=== PATIENT | female | born 1960 | race Two or more races ===

== ENCOUNTER 2023-04-06 09:00 | Day surgery (SDC) | payer MEDICAID ==
[2023-04-03 10:08] LABS: BASOPHILS % (AUTO) 0.4 % (0-1); EOSINOPHILS # (AUTO) 0.1 X10'3 (0-0.9); EOSINOPHILS % (AUTO) 1.7 % (0-6); LYMPHOCYTES # (AUTO) 2.4 X10'3 (1.1-4.8); LYMPHOCYTES % (AUTO) 44.9 % (21-51); MEAN CORPUSCULAR HEMOGLOBIN 27.2 PG (27.0-31.0); MEAN CORPUSCULAR HGB CONC 33.7 g/dL (33.0-36.5); MEAN CORPUSCULAR VOLUME 80.7 FL (78-98); MONOCYTES # (AUTO) 0.3 X10'3 (0-0.9); NEUTROPHILS # (AUTO) 2.5 X10'3 (1.8-7.7); PRE OP HEMOGLOBIN 12.5 g/dL (12.0-16.0); PRE OP PLATELET COUNT 196 X10'3 (140-440); PRE OP WHITE BLOOD COUNT 5.3 10'3 (4.8-10.8); RED BLOOD COUNT 4.59 X10'6 (4.20-5.60); RED CELL DISTRIBUTION WIDTH 14.6 % (11.5-14.5)
[2023-04-03 12:07] LABS: ALBUMIN 3.7 G/DL (3.4-5.0); ALBUMIN/GLOBULIN RATIO 0.9 (1.1-1.5); ALKALINE PHOSPHATASE 92 IU/L (46-116); BLOOD UREA NITROGEN 19 MG/DL (7-18); BUN/CREATININE RATIO 21.1 (10.0-20.0); CHLORIDE 106 MMOL/L (99-107); PRE OP ALT 32 U/L (30-65); PRE OP ANION GAP 10 (8-16); PRE OP AST 17 U/L (10-37); PRE OP BILIRUB, TOTAL 0.4 MG/DL (0.0-1.0); PRE OP GLUCOSE 93 MG/DL (70-104); PRE OP POTASSIUM 4.5 MMOL/L (3.4-5.1); PRE OP SODIUM 142 MMOL/L (135-145); TOTAL CARBON DIOXIDE 25.9 MMOL/L (24-32); eGFR 63 ML/MIN
[~2023-04-06] VITALS: Ht 167.6 cm; Wt 79.0 kg
[2023-04-06] VITALS (9 sets, daily range): BP systolic 96–122; BP diastolic 54–70; PULSE 59–67; RESP 10–16; TEMP 98.3; O2SAT 95–98
[~2023-04-06 09:00] MED LIST: ALLO100T PO; GABA-530 PO; MELO-102 PO; PANT40TA54 PO; PARO10TA4 PO; clindamycin-Cleocin 900mg/D5W 50 ML IV ONE
[2023-04-06] MEDS: famotidine 20mg tablet PO ONE (10:33)
[2023-04-06] MEDS: ringers solution, lacted 1,000 ML IV SCH (10:33)
[2023-04-06] MEDS ORDERED: labetalol 20mg/4ml (5mg/ml) syringe IV PRN (10:45)
[2023-04-06] MEDS ORDERED: ondansetron/PF 4mg/2ml inj IV PRN (10:45)
[2023-04-06] MEDS ORDERED: morphine 2 MG/ML inj. syringe IV PRN (10:45)
[2023-04-06] MEDS ORDERED: morphine 4 MG/ML inj SYRINge IV PRN (10:45)
[2023-04-06] MEDS ORDERED: ringers solution, lacted 1,000 ML IV SCH (10:45)
[2023-04-06] MEDS ORDERED: hydrALAZINE 20mg/ml inj. IV PRN (10:45)
[2023-04-06] MEDS ORDERED: fentaNYL/PF 50MCG/1 ML 2ML syringe IV PRN ×2 (10:45)
[2023-04-06] MEDS ORDERED: propofol 10mg/ml 20ml vial IV ONE (11:33)
[2023-04-06] MEDS ORDERED: fentaNYL/PF 50MCG/1 ML 2ML syringe ONE (11:38)
[2023-04-06] MEDS ORDERED: midazolam 1 mg/ML 2ml injection ONE (11:39)
[2023-04-06] MEDS: BUPIVAcaine/PF 2.5mg/ml (0.25%) 10ml vial ONE (12:08)
[2023-04-06] MEDS: LIDOcaine 0.5% (5mg/ml) 50ml vial ONE (12:09)
== END 2023-04-06 13:37 | disposition home or self-care (01) ==
LOC: PAS 09:00
PROVIDERS: ATTEND Orthopaedic Surgery Hand Surgery
DX: G56.03 Carpal tunnel syndrome, bilateral upper limbs (principal); K21.9 Gastro-esophageal reflux disease without esophagitis; M10.9 Gout, unspecified; F32.A Depression, unspecified; M19.90 Unspecified osteoarthritis, unspecified site; Z79.899 Other long term (current) drug therapy; Z88.1 Allergy status to other antibiotic agents
CPT/HCPCS: 29848; 36415; 80053; 82948; 85025; 93005; J2250; J2704; J3010; J3490; J7030; J7120; Z7506; Z7512; A4215; A6449; A7000